=== PATIENT | female | born 1975 | race Caucasian/White ===

== ENCOUNTER 2017-06-14 15:48 | Emergency (ER) | payer SELFPAY ==
[~2017-06-14] VITALS: Ht 170.2 cm; Wt 55.0 kg
[~2017-06-14 15:48] MED LIST: DIPH25 PO; HALO5 PO; IBUP600 PO; OXYC1SOL5 PO; PERI8.6T PO; PREN0.01 PO; PRENCAP6 PO
[2017-06-14 16:20] VITALS: BP 119/69; PULSE 73; RESP 20; TEMP 99; O2SAT 98
--- NOTE | 2017-06-14 16:27 | PD ---
HPI Chief Complaint: Altered Mental Status Time Seen by Provider: 16:12 Travel History International Travel<30 days: No Contact w/Intl Traveler<30days: No Traveled to known affect area: No History of Present Illness HPI 41-year-old female was brought in by EMS for evaluation. Patient was found wandering around at a local store. Patient denies any headache. Patient denies any chest pain or shortness of breath. Patient denies abdominal pain. Patient denies any focal weakness or numbness of extremity. Patient denies any coughing congestion fever chills. Patient denies nausea vomiting diarrhea. Patient denied dysuria or frequency. Patient on her menstruation period now. PFSH Past Medical History Diabetes: No Immunizations Current: Yes : 3 Para: 2 Past Surgical History Section: Yes Other Surgery: Yes (C SECTION, BREAST AUGMENTATION) Social History Alcohol Use: No Tobacco Use: No Substance Use: No Allergies-Medications (Allergen,Severity, Reaction): Coded Allergies: No Known Allergies (Unverified , 09/15/14) Reported Meds & Prescriptions Reported Meds & Active Scripts Active 1 ( Multivitamins) Cap 1 Cap PO DAILY Hiral-Colace 8.6-50 mg (Sennosides-Docusate Sodium) 1 Tab Tab 2 Tab PO Q12H PRN Oxycodone/Acetaminophen 5 mg/325 mg (Oxycodone W/ Acetaminophen) 1 Tab Tab 1 Tab PO Q4H PRN Motrin 600 Mg Tab (Ibuprofen) 600 Mg Tab 600 Mg PO Q6H PRN Vit ( Plus) (Prenat Multivit/[place]/Iron/Folic Ac) 1 Tab Tab 1 Tab PO DAILY Haldol (Haloperidol) 5 Mg Tab 5 Mg PO BID Benadryl 25 Mg Cap (Diphenhydramine Hcl) 25 Mg Cap 25 Mg PO BID Review of Systems General / Constitutional: No: Fever Eyes: No: Visual changes HENT: No: Headaches Cardiovascular: No: Chest Pain or Discomfort Respiratory: No: Shortness of Breath Gastrointestinal: No: Abdominal Pain Genitourinary: No: Dysuria Musculoskeletal: No: Pain Skin: No Rash Neurologic: No: Weakness Psychiatric: No: Depression Endocrine: No: Polydipsia Hematologic/Lymphatic: No: Easy Bruising Physical Exam Narrative GENERAL: Well-nourished, well-developed patient. SKIN: Focused skin assessment warm/dry. HEAD: Normocephalic. EYES: No scleral icterus. No injection or drainage. NECK: Supple, trachea midline. No JVD or lymphadenopathy. CARDIOVASCULAR: Regular rate and rhythm without murmurs, gallops, or rubs. RESPIRATORY: Breath sounds equal bilaterally. No accessory muscle use. GASTROINTESTINAL: Abdomen soft, non-tender, nondistended. MUSCULOSKELETAL: No cyanosis, or edema. BACK: Nontender without obvious deformity. No CVA tenderness. Neurologic exam: Patient's awake and alert oriented to place and person. Patient moves all extremities well. No obvious focal neurological deficit. Data Data Orders Orders Complete Blood Count With Diff (06/14/17 16:19) Comprehensive Metabolic Panel (06/14/17 16:19) Urinalysis - C+S If Indicated (06/14/17 16:19) Psych Screen (06/14/17 16:19) Drug Screen, Random Urine (06/14/17 16:19) MDM Medical Decision Making Medical Screen Exam Complete: Yes Emergency Medical Condition: Yes Differential Diagnosis Differential diagnosis including substance-induced mood disorder, psychosis, schizophrenia, bipolar disorder. Narrative Course 41-year-old female was found wandering around at a local store. Ned Alfredo MD Jun 14, 2017 16:27
[2017-06-14 17:07] LABS: BACTERIA, URINE RARE /hpf; BLOOD, URINE LARGE (NEG); COMMENT (UR) CULT NOT INDICATED; CULTURE IF INDICATED CULT NOT INDICATED; GLUCOSE,URINE NEG (NEG); KETONE, URINE NEG (NEG); NITRITE,URINE NEG (NEG); PH, URINE 6.5 (5.0-8.5); SQUAMOUS EPITHELIAL CELL URINE 2 /hpf (0-5); URINE COLOR LIGHT-YELLOW (YELLW/STRAW)
[2017-06-14 17:14] LABS: AUTOMATED NEUTROPHIL # 5.3 TH/MM3 (1.8-7.7); BASOPHIL % 0.5 % (0.0-2.0); EOSINOPHIL # 0.2 TH/MM3 (0-0.4); EOSINOPHIL % 2.6 % (0.0-4.0); HEMATOCRIT 32.4 % (35.0-46.0); HEMO FLAGS DIFF FINAL; LYMPH % 21.3 % (9.0-44.0); LYMPHOCYTE # 1.6 TH/MM3 (1.0-4.8); MEAN CELL VOLUME 72.7 FL (80.0-100.0); MEAN CORPUSCULAR HEMOGLOBIN 23.3 PG (27.0-34.0); MEAN CORPUSCULAR HGB CONC 32.1 % (32.0-36.0); MONO % 6.5 % (0.0-8.0); NEUT % 69.1 % (16.0-70.0); PLATELET COUNT 371 TH/MM3 (150-450); RED BLOOD COUNT 4.46 MIL/MM3 (4.00-5.30); RED CELL DISTRIBUTION WIDTH 16.8 % (11.6-17.2); WHITE BLOOD COUNT 7.6 TH/MM3 (4.0-11.0)
[2017-06-14 17:16] LABS: ANION GAP 10 MEQ/L (5-15); AST (GOT) 18 U/L (15-37); BICARBONATE 22.9 MEQ/L (21.0-32.0); BLOOD UREA NITROGEN 6 MG/DL (7-18); CHLORIDE 108 MEQ/L (98-107); GLOMERULAR FILTRATION RATE 89 ML/MIN (>89); POTASSIUM 3.2 MEQ/L (3.5-5.1); SODIUM (NA) 141 MEQ/L (136-145)
[2017-06-14 17:19] LABS: ALKALINE PHOSPHATASE 65 U/L (45-117); ALT (GPT) 16 U/L (10-53); TOTAL BILIRUBIN ADULT 0.2 MG/DL (0.2-1.0)
--- NOTE | 2017-07-13 10:42 | PD ---
Physical Exam Narrative This is an addendum to previous dictation. Data Data Orders Orders Complete Blood Count With Diff (06/14/17 16:19) Comprehensive Metabolic Panel (06/14/17 16:19) Urinalysis - C+S If Indicated (06/14/17 16:19) Psych Screen (06/14/17 16:19) Drug Screen, Random Urine (06/14/17 16:19) Diet Regular Basic (06/14/17 Dinner) Ed Urine Pregnancytest Poc (06/14/17 22:01) Ed Discharge Order (06/15/17 03:40) Labs Laboratory Tests Test 06/14/17 16:30 White Blood Count 7.6 TH/MM3 Red Blood Count 4.46 MIL/MM3 Hemoglobin 10.4 GM/DL Hematocrit 32.4 % Mean Corpuscular Volume 72.7 FL Mean Corpuscular Hemoglobin 23.3 PG Mean Corpuscular Hemoglobin Concent 32.1 % Red Cell Distribution Width 16.8 % Platelet Count 371 TH/MM3 Mean Platelet Volume 9.1 FL Neutrophils (%) (Auto) 69.1 % Lymphocytes (%) (Auto) 21.3 % Monocytes (%) (Auto) 6.5 % Eosinophils (%) (Auto) 2.6 % Basophils (%) (Auto) 0.5 % Neutrophils # (Auto) 5.3 TH/MM3 Lymphocytes # (Auto) 1.6 TH/MM3 Monocytes # (Auto) 0.5 TH/MM3 Eosinophils # (Auto) 0.2 TH/MM3 Basophils # (Auto) 0.0 TH/MM3 CBC Comment DIFF FINAL Differential Comment Urine Color LIGHT-YELLOW Urine Turbidity CLEAR Urine pH 6.5 Urine Specific [place] 1.001 Urine Protein NEG mg/dL Urine Glucose (UA) NEG mg/dL Urine Ketones NEG mg/dL Urine Occult Blood LARGE Urine Nitrite NEG Urine Bilirubin NEG Urine Urobilinogen LESS THAN 2.0 MG/DL Urine Leukocyte Esterase SMALL Urine RBC LESS THAN 1 /hpf Urine WBC 2 /hpf Urine Squamous Epithelial Cells 2 /hpf Urine Amorphous Sediment RARE Urine Bacteria RARE /hpf Microscopic Urinalysis Comment CULT NOT INDICATED Blood Urea Nitrogen 6 MG/DL Creatinine 0.72 MG/DL Random Glucose 86 MG/DL Total Protein 7.8 GM/DL Albumin 3.7 GM/DL Calcium Level 8.8 MG/DL Alkaline Phosphatase 65 U/L Aspartate Amino Transf (AST/SGOT) 18 U/L Alanine Aminotransferase (ALT/SGPT) 16 U/L Total Bilirubin 0.2 MG/DL Sodium Level 141 MEQ/L Potassium Level 3.2 MEQ/L Chloride Level 108 MEQ/L Carbon Dioxide Level 22.9 MEQ/L Anion Gap 10 MEQ/L Estimat Glomerular Filtration Rate 89 ML/MIN Urine Opiates Screen NEG Urine Barbiturates Screen NEG Urine Amphetamines Screen NEG Urine Benzodiazepines Screen NEG Urine Cocaine Screen NEG Urine Cannabinoids Screen NEG MDM Supervised Visit with ABBEY: No Diagnosis Primary Impression: Psychosis Patient Instructions: General Instructions Departure Forms: Tests/Procedures Additional Instruction: GO TO [facility] FOR FURTHER EVALUATION AND TREATMENT Scripts No Active Prescriptions or Reported Meds Disposition: 65 DISC TO PSYCH CARE FACILITY Condition: Stable Ned Alfredo MD Jul 13, 2017 10:42
== END 2017-06-15 05:37 ==
LOC: NEPD 15:48 → NEPJ 06-15 05:37
DX: F29 Unspecified psychosis not due to a substance or known physiological condition (principal)
CPT/HCPCS: 80053; 80307; 81001; 84703; 85025; 99285